=== PATIENT | female | born 1955 | race Two or more races ===

== ENCOUNTER → 2017-07-01 | Outpatient (CLI) | payer OTHER | END | disposition home or self-care (01) | LOC: NUCLEAR 13:00 | DX: Z78.0 Asymptomatic menopausal state (principal); Z78.9 Other specified health status; E55.9 Vitamin D deficiency, unspecified; N95.1 Menopausal and female climacteric states ==

== ENCOUNTER 2017-09-29 08:09 | Outpatient (CLI) | payer OTHER | END 2017-09-29 08:15 | disposition home or self-care (01) | LOC: SONOGRAMA 08:09 → MAMO-SONO 08:15 → SONOGRAMA 08:15 | DX: N60.19 Diffuse cystic mastopathy of unspecified breast (principal); Z12.31 Encounter for screening mammogram for malignant neoplasm of breast; Z78.0 Asymptomatic menopausal state; Z78.9 Other specified health status; N95.1 Menopausal and female climacteric states; N64.4 Mastodynia; R92.2 Inconclusive mammogram; N64.89 Other specified disorders of breast; N63.10 Unspecified lump in the right breast, unspecified quadrant; N63.11 Unspecified lump in the right breast, upper outer quadrant ==